=== PATIENT | male | born 1970 | race Caucasian/White ===

== ENCOUNTER 2022-07-06 14:13 | Outpatient (CLI) | payer OTHER | END 2022-07-06 14:14 | disposition home or self-care (01) | LOC: NAV RAD 14:13 | PROVIDERS: ATTEND Family Medicine | DX: S46.001D Unspecified injury of muscle(s) and tendon(s) of the rotator cuff of right shoulder, subsequent encounter (principal); M85.811 Other specified disorders of bone density and structure, right shoulder ==